=== PATIENT | male | born 1940 | race Caucasian/White ===

== ENCOUNTER 2017-09-05 07:24 | Day surgery (SDC) | payer MEDICARE, BC ==
[2017-09-05] MEDS ORDERED: Sodium Chloride 0.9% 10 ML Syringe FLUSH PRN (07:30)
[2017-09-05] MEDS ORDERED: Lactated Ringers 1,000 ML IV SCH (07:30)
[2017-09-05] MEDS ORDERED: Propofol 200 MG/20 ML SDV IV ONE (09:00)
[2017-09-05] MEDS ORDERED: Midazolam 1 MG/ML 2 ML SDV IV ONE (09:00)
[2017-09-05] MEDS ORDERED: Lidocaine 2% 100 MG/5 ML Syringe IVPUSH ONE (09:00)
--- NOTE | 2017-09-05 09:23 | PCM.OPNOTE ---
- General Post-Op/Procedure Note Date of Surgery/Procedure: 09/05/17 Operative Procedure(s): egd with bx Findings: gastroduodenitis Pre Op Diagnosis: duodenitis Post-Op Diagnosis: gastroduodenitis Anesthesia Technique: MYRTLE Primary Surgeon: Soren Winn Anesthesia Provider: Gloria Garcia Pathology: stomach and duodenum Complications: None Condition: Good Free Text/Narrative:: see dictation
[2017-09-05 10:13] VITALS: BP 132/80
--- NOTE | 2017-09-05 11:43 | OR ---
DATE OF OPERATION: 09/05/2017 SURGEON: Soren Winn MD PROCEDURE PERFORMED: Upper endoscopy with cold forceps biopsy. PREOPERATIVE DIAGNOSIS: Duodenitis. POSTOPERATIVE DIAGNOSIS: Gastric duodenitis. INDICATIONS FOR PROCEDURE: This is a 76-year-old white male, who presented with a complaint of some right upper quadrant abdominal pain consistent with duodenitis. He was offered and accepted an EGD. DESCRIPTION OF PROCEDURE: After an excellent IV sedation was administered, the bite-block was inserted and flexible endoscope was passed without difficulty down the patient's esophagus into the stomach. The stomach was insufflated. Scope was passed through the pylorus to the second portion of duodenum and slowly withdrawn. The following findings were noted. #1. Mild duodenitis in the first portion of the duodenum. Biopsies were taken. #2. Gastritis, especially in the area of the antrum. Antral biopsies were taken. The esophagus was unremarkable. Stomach was deflated. The scope was removed. The patient tolerated the procedure well, and was taken to recovery room in good condition. /[id number] /MODL
== END 2017-09-05 10:24 | disposition home or self-care (01) ==
LOC: FB.SDS 07:24
PROVIDERS: ATTEND Surgery
DX: K29.50 Unspecified chronic gastritis without bleeding (principal); K29.80 Duodenitis without bleeding; E03.9 Hypothyroidism, unspecified; N40.1 Benign prostatic hyperplasia with lower urinary tract symptoms; K21.9 Gastro-esophageal reflux disease without esophagitis; Z88.1 Allergy status to other antibiotic agents; Z88.8 Allergy status to other drugs, medicaments and biological substances; Z79.82 Long term (current) use of aspirin; Z79.899 Other long term (current) drug therapy; Z87.891 Personal history of nicotine dependence
CPT/HCPCS: 00740; 43239; 88305; 88342; J2250; J2704; J7120

== ENCOUNTER 2020-07-27 07:07 | Day surgery (SDC) | payer MEDICARE, BC ==
[2020-07-27] MEDS ORDERED: Propofol 200 MG/20 ML SDV IV ONE (07:08)
[2020-07-27] MEDS ORDERED: Sodium Chloride 0.9% 10 ML Syringe FLUSH PRN (07:15)
[2020-07-27] MEDS: Lactated Ringers 1,000 ML IV SCH (08:18)
--- NOTE | 2020-07-27 09:17 | PCM.OPNOTE ---
- General Post-Op/Procedure Note Date of Surgery/Procedure: 07/27/20 Operative Procedure(s): c scope with hot loop and cold forceps biopsy Findings: large cecal polyp. unable to remove with hot loop. tissue obtained. rectal polyp Pre Op Diagnosis: rectal bleeding Post-Op Diagnosis: ascending colon polyp. rectal polyp Anesthesia Technique: MAC Primary Surgeon: Soren Winn Anesthesia Provider: Gloria Garcia Pathology: ascending colon polyp rectal polyp Complications: None Condition: Good Free Text/Narrative:: see dictation [id number]
[2020-07-27 09:52] VITALS: BP 126/68; PULSE 69
--- NOTE | 2020-07-27 14:37 | PROC ---
DATE OF PROCEDURE: 07/27/2020 PROCEDURE PERFORMED: Colonoscopy with hot loop and cold forceps biopsy. PREOPERATIVE DIAGNOSIS: Rectal bleeding. POSTOPERATIVE DIAGNOSES: 1. Ascending colon polyp. 2. Rectal polyp. INDICATIONS FOR PROCEDURE: This 79-year-old white male, who is referred with the above-mentioned complaints, offered and accepted colonoscopy. DESCRIPTION OF PROCEDURE: After an excellent IV sedation was administered, digital rectal exam was performed. No marked abnormality was noted. The flexible colonoscope was inserted and advanced to the cecum. The prep was excellent. The following findings were noted: At the ascending colon, there was a large pedunculated-appearing polyp. Maximal diameter appeared to be roughly about 3 to 3.5 cm. We were able to get a hot loop around the base; however, attempts with short pulses of the electrocautery did not allow us to cut across the base of the polyp. The cord and loop were replaced, and again, this was unsuccessful. Rather than risk perforation, a shave biopsy was taken off the top using the hot loop which did cut very nicely. This was retrieved and sent for permanent. The remainder of the ascending colon was unremarkable. The transverse colon was unremarkable. The descending colon was unremarkable. The sigmoid was unremarkable. At the rectum, small polypoid lesion 0.5 cm in size, biopsied with cold biopsy forceps and sent for permanent that was completely obliterated. Retroflexing the scope, there was no evidence of internal hemorrhoids, and there was no overt evidence of an obvious cause for rectal bleeding. The patient tolerated the procedure well. We will be contacting him with the results. /[id number] /NATHENL
== END 2020-07-27 10:13 | disposition home or self-care (01) ==
LOC: FB.SDS 07:07
PROVIDERS: ATTEND Surgery
DX: D12.8 Benign neoplasm of rectum (principal); K52.832 Lymphocytic colitis; E03.9 Hypothyroidism, unspecified; Z79.899 Other long term (current) drug therapy; Z88.8 Allergy status to other drugs, medicaments and biological substances; Z88.1 Allergy status to other antibiotic agents; Z79.890 Hormone replacement therapy; Z98.890 Other specified postprocedural states; Z87.891 Personal history of nicotine dependence
CPT/HCPCS: 00811; 45380; 45384; 88305; 88341; 88342; J2704; J7120

== ENCOUNTER 2021-09-05 14:25 | Emergency (ER) | payer MEDICARE, BC ==
[2021-09-05] MEDS ORDERED: Acetaminophen/HYDROcodone 325-5 MG Tab PO STA (14:50)
[2021-09-05] MEDS ORDERED: Ketorolac 30 MG/ML SDV IM STA (14:50)
--- NOTE | 2021-09-05 16:31 | EDM.PDOC ---
ED HPI GENERAL MEDICAL PROBLEM - General Chief Complaint: Back Pain or Injury Stated Complaint: BACK PAIN FROM FALL Time Seen by Provider: 09/05/21 14:45 Source of Information: Reports: Patient History Limitations: Reports: No Limitations - History of Present Illness INITIAL COMMENTS - FREE TEXT/NARRATIVE: Patient presented to the ED because of severe low back pain after falling backwards 2 steps from his stairs. He landed on his buttock but the pain is on his L1-L2 area. Lower Back Pain Score (Numeric/FACES): 10 - Related Data Allergies Allergy/AdvReac Type Severity Reaction Status Date / Time ciprofloxacin [From Cipro] Allergy Rash Verified 03/21/21 09:35 Sulfa (Sulfonamide Allergy Rash Verified 09/05/21 14:41 Antibiotics) cyclobenzaprine AdvReac Other Verified 03/21/21 09:35 [Cyclobenzaprine] tetracycline [Tetracycline] AdvReac Other Verified 03/21/21 09:35 Home Meds: Home Meds Aspirin [[place] Aspirin] 81 mg PO DAILY 12/16/13 [History] Garlic 1,000 mg PO DAILY 12/16/13 [History] Levothyroxine 88 mcg PO DAILY 12/16/13 [History] Loratadine [Claritin] 10 mg PO DAILY PRN 12/16/13 [History] Psyllium Husk/Aspartame [Metamucil Sugar Free Powder] 1 tbsp PO DAILY PRN 12/16/13 [History] Omeprazole [Prilosec] 20 mg PO DAILY 12/17/13 [History] EPINEPHrine [Epipen] 0.3 mg IM ASDIRECTED PRN 07/26/20 [History] Sildenafil [Viagra] 100 mg PO DAILY PRN 07/26/20 [History] Triamcinolone Acetonide [Triamcinolone Acetonide 0.1% Crm] 1 applic TOP TID PRN 07/26/20 [History] Acetaminophen/oxyCODONE [Percocet 325-5 MG] 1 each PO Q4H PRN #20 tab 09/05/21 [Rx] Calcium Carb/D3/Magnesium/Zinc [Shyam Mag Zinc + D3] 1 tab PO DAILY 09/05/21 [History] Cyanocobalamin (Vitamin B12) [Vitamin B-12] 2,500 mcg SL DAILY 09/05/21 [History] Cyclobenzaprine [Flexeril] 5 mg PO Q8H PRN #30 tab 09/05/21 [Rx] Furosemide [Lasix] 20 mg PO DAILY 09/05/21 [History] Naproxen 500 mg PO BID PRN #30 tablet 09/05/21 [Rx] Past Medical History HEENT History: Reports: Cataract, Hard of Hearing, Impaired Vision Cardiovascular History: Reports: None Respiratory History: Reports: None Gastrointestinal History: Reports: GERD Genitourinary History: Reports: BPH, Renal Calculus Other Genitourinary History: POLYURIA. DIVERTICULUM OF BLADDER. BLADDER CALCULUS [employer] History: Reports: None Musculoskeletal History: Reports: Fracture, Neck Pain, Chronic, Other (See Below) Other Musculoskeletal History: LUMBOSACRAL SPONDYLOSIS. ACUTE NECK SPRAIN. RIGHT KNEE BURSITIS Neurological History: Reports: None Psychiatric History: Reports: None Endocrine/Metabolic History: Reports: Hypothyroidism Hematologic History: Reports: Anemia, Other (See Below) Other Hematologic History: THROMBOCYTOPENIA Immunologic History: Reports: None Oncologic (Cancer) History: Reports: Lymphoma, Other (See Below) Other Oncologic History: SMALL LYMPHOCYTIC LYMPHOMA Dermatologic History: Reports: None - Past Surgical History Head Surgeries/Procedures: Reports: None HEENT Surgical History: Reports: Oral Surgery Cardiovascular Surgical History: Reports: None Respiratory Surgical History: Reports: None GI Surgical History: Reports: Appendectomy, Colonoscopy, EGD Male Surgical History: Reports: Other (See Below) Other Male Surgeries/Procedures: LASER VAPORIZATION OF PROSTATE Endocrine Surgical History: Reports: None Neurological Surgical History: Reports: None Musculoskeletal Surgical History: Reports: Other (See Below) Other Musculoskeletal Surgeries/Procedures:: I&D RIGHT KNEE Oncologic Surgical History: Reports: None Dermatological Surgical History: Reports: None Social & Family History - Tobacco Use Tobacco Use Status *Q: Never Tobacco User - Caffeine Use Caffeine Use: Reports: None - Recreational Drug Use Recreational Drug Use: No ED ROS GENERAL - Review of Systems Review Of Systems: See Below Constitutional: Reports: No Symptoms HEENT: Reports: No Symptoms Respiratory: Reports: No Symptoms Cardiovascular: Reports: No Symptoms Endocrine: Reports: No Symptoms GI/Abdominal: Reports: No Symptoms : Reports: No Symptoms Musculoskeletal: Reports: Back Pain Skin: Reports: No Symptoms Neurological: Reports: No Symptoms Psychiatric: Reports: No Symptoms ED EXAM,LOWER BACK PAIN/INJURY - Physical Exam Exam: See Below Exam Limited By: No Limitations General Appearance: Alert, No Apparent Distress Ears: Normal External Exam, Normal Canal, Normal TMs Nose: Normal Inspection, No Blood Throat/Mouth: Normal Inspection, Normal Lips, Normal Teeth Head: Atraumatic, Normocephalic Neck: Normal Inspection, Supple, Non-Tender, Full Range of Motion Respiratory/Chest: No Respiratory Distress, Lungs Clear, Normal Breath Sounds, No Accessory Muscle Use, Chest Non-Tender Cardiovascular: Normal Peripheral Pulses, Regular Rate, Rhythm, No Edema, No Gallop, No JVD, No Murmur GI/Abdominal: Normal Bowel Sounds, Soft, Non-Tender, No Organomegaly, No Distention, No Abnormal Bruit Back Exam: Muscle Spasm, Vertebral Tenderness Extremities: Normal Inspection, Normal Range of Motion, No Pedal Edema Neurological: Alert, Normal Mood/Affect, Normal Dorsiflexion, CN II-XII Intact, Normal Plantar Flexion, Normal Gait, Oriented x 3 Psychiatric: Normal Affect Course - Vital Signs Text/Narrative:: Xray lumbar spine-see result Toradol 30 mg IM x1 [place] 5 mg PO x1 Prcocet 5 mg PO x1 Last Recorded V/S: Last Vital Signs Temp 36.4 C 09/05/21 17:09 Pulse 69 09/05/21 17:09 Resp 18 09/05/21 17:09 BP 175/89 H 09/05/21 17:09 Pulse Ox 97 09/05/21 17:09 - Orders/Labs/Meds Orders: Active Orders 24 hr Category Date Time Status Insert Urinary Catheter [OM.PC] Q24H Care 09/05/21 16:45 Ordered Meds: Medications Discontinued Medications Generic Name Dose Route Start Last Admin Trade Name Wyattq PRN Reason Stop Dose Admin Hydrocodone Bitart/Acetaminophen 1 tab 09/05/21 14:50 09/05/21 14:55 Acetaminophen/Hydrocodone 325-5 Mg Tab PO 09/05/21 14:51 1 tab NOW STA Administration Ketorolac Tromethamine 30 mg 09/05/21 14:50 09/05/21 14:55 Ketorolac 30 Mg/Ml Sdv IM 09/05/21 14:51 30 mg NOW STA Administration Oxycodone/Acetaminophen 1 tab 09/05/21 16:32 09/05/21 16:37 Acetaminophen/Oxycodone 325-5 Mg Tab PO 09/05/21 16:33 1 tab NOW STA Administration Departure - Departure Time of Disposition: 17:00 Disposition: Home, Self-Care 01 Condition: Good Clinical Impression: Compression fracture, Low back pain - Discharge Information Prescriptions: Cyclobenzaprine [Flexeril] 5 mg PO Q8H PRN #30 tab PRN Reason: Spasms Naproxen 500 mg PO BID PRN #30 tablet PRN Reason: Pain Acetaminophen/oxyCODONE [Percocet 325-5 MG] 1 each PO Q4H PRN #20 tab PRN Reason: Pain Instructions: Lumbar Spine Fracture Referrals: Kvng Vieyra DO [Primary Care Provider] - Forms: ED Department Discharge Additional Instructions: Please read discharge instructions on lumbar compression compression fracture Naproxen 500 mg twice daily as needed for pain Percocet 5mg, 1-2 tablets every 4-6 hours as needed for pain Flexeril 5 mg every 8 hours as needed for muscle spasm Follow up with your doctor in 3-5 days Sepsis Event Note (ED) - Evaluation Sepsis Screening Result: No Definite Risk - My Orders Last 24 Hours: My Active Orders 09/05/21 16:45 Insert Urinary Catheter [OM.PC] Q24H - Assessment/Plan Last 24 Hours: My Active Orders 09/05/21 16:45 Insert Urinary Catheter [OM.PC] Q24H
[2021-09-05] MEDS ORDERED: Acetaminophen/oxyCODONE 325-5 MG Tab PO STA (16:32)
--- NOTE | 2021-09-05 17:57 | CR ---
INDICATION: Fall, low back pain. LUMBOSACRAL SPINE: Frontal and lateral views of the lumbosacral spine were obtained with three images, 09/05/21, and compared with CT scan dated 03/21/21. There are again noted compression fractures at L2, L3, L4 superior endplates with anterior compression of mild degree at L2. There is also severe loss of disc space at L4-5, all stable, compared with the previous study. However, there is a change at L1 with a new finding of superior endplate compression of mild degree. This could represent an acute finding, but is not showing specific signs of an acute injury at this time. If acute injury is suspected clinically and further evaluation is necessary, nuclear bone imaging or possibly MRI, may be helpful for further evaluation. Sclerosis is noted at posterior elements, most prominent at L5-S1. Sacroiliac joints appear to be intact. 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 One compression fracture of superior endplate of mild degree at L1 is new compared with the previous CT scan of 03/21/21. Report was called to Dr. Camacho at 1550 hours. [facility]
[2021-09-05 19:34] VITALS: BP 175/89; PULSE 69
== END 2021-09-05 17:40 | disposition home or self-care (01) ==
LOC: SUPCPDRO 14:25 → FB.ED 14:25
DX: S32.010A Wedge compression fracture of first lumbar vertebra, initial encounter for closed fracture (principal); K21.9 Gastro-esophageal reflux disease without esophagitis; E03.9 Hypothyroidism, unspecified; Z88.1 Allergy status to other antibiotic agents; Z88.2 Allergy status to sulfonamides; Z88.8 Allergy status to other drugs, medicaments and biological substances; Z79.82 Long term (current) use of aspirin; Z79.899 Other long term (current) drug therapy; W10.8XXA Fall (on) (from) other stairs and steps, initial encounter
CPT/HCPCS: 51702; 72100; 96372; 99283; A9270; J1885; 99285

== ENCOUNTER 2021-09-08 12:21 | Emergency (ER) | payer MEDICARE, BC ==
[2021-09-08] MEDS ORDERED: Cephalexin 500 MG Cap PO STA (15:54)
--- NOTE | 2021-09-08 16:09 | EDM.PDOC ---
ED HPI GENERAL MEDICAL PROBLEM - General Chief Complaint: Genitourinary Problem Stated Complaint: BACK PAIN Time Seen by Provider: 09/08/21 12:30 Source of Information: Reports: Patient History Limitations: Reports: No Limitations - History of Present Illness INITIAL COMMENTS - FREE TEXT/NARRATIVE: Patient presented to the ED because of back pain and cloud problem. He was diagn osed with vertebral compression fracture 1 week ago and was put on foly because he can't get up and go the restroom. Today he noticed that his catheter was no draining. His back pain is better with percocet. left Lower abdomen Pain Score (Numeric/FACES): 4 - Related Data Allergies Allergy/AdvReac Type Severity Reaction Status Date / Time ciprofloxacin [From Cipro] Allergy Rash Verified 03/21/21 09:35 Sulfa (Sulfonamide Allergy Rash Verified 09/08/21 13:37 Antibiotics) cyclobenzaprine AdvReac Other Verified 03/21/21 09:35 [Cyclobenzaprine] tetracycline [Tetracycline] AdvReac Other Verified 09/08/21 13:37 Home Meds: Home Meds Aspirin [[place] Aspirin] 81 mg PO DAILY 12/16/13 [History] Garlic 1,000 mg PO DAILY 12/16/13 [History] Levothyroxine 88 mcg PO DAILY 12/16/13 [History] Loratadine [Claritin] 10 mg PO DAILY PRN 12/16/13 [History] Psyllium Husk/Aspartame [Metamucil Sugar Free Powder] 1 tbsp PO DAILY PRN 12/16/13 [History] Omeprazole [Prilosec] 20 mg PO DAILY 12/17/13 [History] EPINEPHrine [Epipen] 0.3 mg IM ASDIRECTED PRN 07/26/20 [History] Sildenafil [Viagra] 100 mg PO DAILY PRN 07/26/20 [History] Triamcinolone Acetonide [Triamcinolone Acetonide 0.1% Crm] 1 applic TOP TID PRN 07/26/20 [History] Acetaminophen/oxyCODONE [Percocet 325-5 MG] 1 each PO Q4H PRN #20 tab 09/05/21 [Rx] Calcium Carb/D3/Magnesium/Zinc [Shyam Mag Zinc + D3] 1 tab PO DAILY 09/05/21 [History] Cyanocobalamin (Vitamin B12) [Vitamin B-12] 2,500 mcg SL DAILY 09/05/21 [History] Cyclobenzaprine [Flexeril] 5 mg PO Q8H PRN #30 tab 09/05/21 [Rx] Furosemide [Lasix] 20 mg PO DAILY 09/05/21 [History] Naproxen 500 mg PO BID PRN #30 tablet 09/05/21 [Rx] Acetaminophen/oxyCODONE [Percocet 325-5 MG] 1 each PO Q4H PRN #20 tab 09/08/21 [Rx] cephALEXin [Keflex] 500 mg PO Q8H #30 cap 09/08/21 [Rx] Past Medical History HEENT History: Reports: Cataract, Hard of Hearing, Impaired Vision Cardiovascular History: Reports: None Respiratory History: Reports: None Gastrointestinal History: Reports: GERD Genitourinary History: Reports: BPH, Renal Calculus Other Genitourinary History: POLYURIA. DIVERTICULUM OF BLADDER. 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 ACUTE NECK SPRAIN. RIGHT KNEE BURSITIS Neurological History: Reports: None Psychiatric History: Reports: None Endocrine/Metabolic History: Reports: Hypothyroidism Hematologic History: Reports: Anemia, Other (See Below) Other Hematologic History: THROMBOCYTOPENIA Immunologic History: Reports: None Oncologic (Cancer) History: Reports: Lymphoma, Other (See Below) Other Oncologic History: SMALL LYMPHOCYTIC LYMPHOMA Dermatologic History: Reports: None - Past Surgical History Head Surgeries/Procedures: Reports: None HEENT Surgical History: Reports: Oral Surgery Cardiovascular Surgical History: Reports: None Respiratory Surgical History: Reports: None GI Surgical History: Reports: Appendectomy, Colonoscopy, EGD Male Surgical History: Reports: Other (See Below) Other Male Surgeries/Procedures: LASER VAPORIZATION OF PROSTATE Endocrine Surgical History: Reports: None Neurological Surgical History: Reports: None Musculoskeletal Surgical History: Reports: Other (See Below) Other Musculoskeletal Surgeries/Procedures:: I&D RIGHT KNEE Oncologic Surgical History: Reports: None Dermatological Surgical History: Reports: None Social & Family History - Caffeine Use Caffeine Use: Reports: None ED ROS GENERAL - Review of Systems Review Of Systems: See Below Constitutional: Reports: No Symptoms HEENT: Reports: No Symptoms Respiratory: Reports: No Symptoms Cardiovascular: Reports: No Symptoms Endocrine: Reports: No Symptoms GI/Abdominal: Reports: No Symptoms : Reports: No Symptoms Musculoskeletal: Reports: Back Pain Skin: Reports: No Symptoms Neurological: Reports: No Symptoms ED EXAM, GENERAL - Physical Exam Exam: See Below Exam Limited By: No Limitations General Appearance: Alert, No Apparent Distress Ears: Normal External Exam, Normal Canal, Hearing Grossly Normal Nose: Normal Inspection, Normal Mucosa, No Blood Throat/Mouth: Normal Inspection, Normal Lips, Normal Teeth, Normal Gums, Normal Oropharynx, Normal Voice Head: Atraumatic Neck: Normal Inspection Respiratory/Chest: No Respiratory Distress Cardiovascular: Normal Peripheral Pulses, Regular Rate, Rhythm, No Edema GI/Abdominal: Normal Bowel Sounds, Soft, Non-Tender, No Organomegaly Back Exam: Normal Inspection, Full Range of Motion Extremities: Normal Inspection, Normal Range of Motion, Non-Tender, No Pedal Edema, Normal Capillary Refill Neurological: Alert, Oriented, CN II-XII Intact, Normal Cognition, Normal Reflexes, No Motor/Sensory Deficits Psychiatric: Normal Affect, Normal Mood Skin Exam: Warm, Intact Course - Vital Signs Text/Narrative:: Bladder scan-60 ml UA-UTI UC-pending Keflex 500 mg PO x1 Percocet 5 mg PO x1 Last Recorded V/S: Last Vital Signs Temp 36.4 C 09/08/21 16:35 Pulse 70 09/08/21 16:35 Resp 18 09/08/21 16:35 BP 136/76 09/08/21 16:35 Pulse Ox 93 L 09/08/21 16:35 - Orders/Labs/Meds Labs: Laboratory Tests 09/08/21 Range/Units 13:49 Urine Color Yellow (YELLOW) Urine Appearance Clear (CLEAR) Urine pH 5.0 (5.0-6.5) Ur Specific [place] 1.010 (1.010-1.025) Urine Protein Negative (NEGATIVE) mg/dL Urine Glucose (UA) Normal (NORMAL) mg/dL Urine Ketones Negative (NEGATIVE) mg/dL Urine Occult Blood Large H (NEGATIVE) Urine Nitrite Negative (NEGATIVE) Urine Bilirubin Negative (NEGATIVE) Urine Urobilinogen Normal (NEGATIVE) mg/dL Ur Leukocyte Esterase Moderate H (NEGATIVE) Urine RBC 5-10 H (0-5) Urine WBC 5-10 H (0-5) Ur Squamous Epith Cells Few H (NS,R,O) Urine Bacteria Few H (NS) Meds: Medications Discontinued Medications Generic Name Dose Route Start Last Admin Trade Name Freq PRN Reason Stop Dose Admin Cephalexin 500 mg 09/08/21 15:54 09/08/21 16:04 Cephalexin 500 Mg Cap PO 09/08/21 15:55 500 mg NOW STA Administration Oxycodone/Acetaminophen 1 tab 09/08/21 16:12 09/08/21 16:16 Acetaminophen/Oxycodone 325-5 Mg Tab PO 1 tab Q4H PRN Administration Pain Departure - Departure Time of Disposition: 16:00 Disposition: Home, Self-Care 01 Condition: Good Clinical Impression: Vertebral compression fracture, UTI (urinary tract infection) - Discharge Information Prescriptions: cephALEXin [Keflex] 500 mg PO Q8H #30 cap Acetaminophen/oxyCODONE [Percocet 325-5 MG] 1 each PO Q4H PRN #20 tab PRN Reason: Pain Instructions: Urinary Tract Infection, Adult, [id number], Lumbar Spine Fracture Referrals: Kvng Vieyra, [Primary Care Provider] - Forms: ED Department Discharge Additional Instructions: Please read discharge instructions on UTI If you feel like you can stand up and go to the rest room you can remove the cloud because it's causing you to have bladder infection Keflex 500 mg 3 times daily for 7 days Take your lasix/furosemide as instructed Follow up with your doctor this week Sepsis Event Note (ED) - Evaluation Sepsis Screening Result: No Definite Risk
[2021-09-08] MEDS ORDERED: Acetaminophen/oxyCODONE 325-5 MG Tab PO PRN (16:12)
[2021-09-08 19:18] VITALS: BP 136/76; PULSE 70
== END 2021-09-08 16:35 | disposition home or self-care (01) ==
LOC: FB.ED 12:21
DX: S32.000A Wedge compression fracture of unspecified lumbar vertebra, initial encounter for closed fracture (principal); N39.0 Urinary tract infection, site not specified; K21.9 Gastro-esophageal reflux disease without esophagitis; E03.9 Hypothyroidism, unspecified; N40.0 Benign prostatic hyperplasia without lower urinary tract symptoms; Z88.1 Allergy status to other antibiotic agents; Z88.2 Allergy status to sulfonamides; Z88.8 Allergy status to other drugs, medicaments and biological substances; Z79.82 Long term (current) use of aspirin; Z79.899 Other long term (current) drug therapy
CPT/HCPCS: 51702; 81001; 87086; 99284; 99284-25; A9270-GY

== ENCOUNTER 2021-09-18 19:34 | Emergency (ER) | payer MEDICARE, BC ==
--- NOTE | 2021-09-18 20:26 | EDM.PDOC ---
ED HPI GENERAL MEDICAL PROBLEM - General Stated Complaint: abd pain/trouble urinating Time Seen by Provider: 09/18/21 19:50 Source of Information: Reports: Patient - History of Present Illness INITIAL COMMENTS - FREE TEXT/NARRATIVE: 80-year-old gentleman came to the emergency department because he has severe abdominal pain and has having a very difficult time urinating. He has had difficulty with urination in the past and has been evaluated by urology in the past. However, he suffered a fall several weeks ago with severe lower back pain and has had increased difficulty since that time. While he was treated as an inpatient they left an indwelling urinary catheter and that was removed by his primary care physician last week. Since that time he has continued to have difficulty with voiding. He got to the point today where his abdominal pain was so bad he came to the emergency department. He denies fever, chills, flulike symptoms, chest pain, shortness of breath. lower abd Pain Score (Numeric/FACES): 7 - Related Data Allergies Allergy/AdvReac Type Severity Reaction Status Date / Time ciprofloxacin [From Cipro] Allergy Rash Verified 03/21/21 09:35 Sulfa (Sulfonamide Allergy Rash Verified 09/08/21 13:37 Antibiotics) cyclobenzaprine AdvReac Other Verified 03/21/21 09:35 [Cyclobenzaprine] tetracycline [Tetracycline] AdvReac Other Verified 09/08/21 13:37 Home Meds: Home Meds Aspirin [Emmet Aspirin] 81 mg PO DAILY 12/16/13 [History] Garlic 1,000 mg PO DAILY 12/16/13 [History] Levothyroxine 88 mcg PO DAILY 12/16/13 [History] Loratadine [Claritin] 10 mg PO DAILY PRN 12/16/13 [History] Psyllium Husk/Aspartame [Metamucil Sugar Free Powder] 1 tbsp PO DAILY PRN 12/16/13 [History] Omeprazole [Prilosec] 20 mg PO DAILY 12/17/13 [History] EPINEPHrine [Epipen] 0.3 mg IM ASDIRECTED PRN 07/26/20 [History] Sildenafil [Viagra] 100 mg PO DAILY PRN 07/26/20 [History] Triamcinolone Acetonide [Triamcinolone Acetonide 0.1% Crm] 1 applic TOP TID PRN 07/26/20 [History] Acetaminophen/oxyCODONE [Percocet 325-5 MG] 1 each PO Q4H PRN #20 tab 09/05/21 [Rx] Calcium Carb/D3/Magnesium/Zinc [Shyam Mag Zinc + D3] 1 tab PO DAILY 09/05/21 [History] Cyanocobalamin (Vitamin B12) [Vitamin B-12] 2,500 mcg SL DAILY 09/05/21 [History] Cyclobenzaprine [Flexeril] 5 mg PO Q8H PRN #30 tab 09/05/21 [Rx] Furosemide [Lasix] 20 mg PO DAILY 09/05/21 [History] Naproxen 500 mg PO BID PRN #30 tablet 09/05/21 [Rx] Acetaminophen/oxyCODONE [Percocet 325-5 MG] 1 each PO Q4H PRN #20 tab 09/08/21 [Rx] cephALEXin [Keflex] 500 mg PO Q8H #30 cap 09/08/21 [Rx] Past Medical History HEENT History: Reports: Cataract, Hard of Hearing, Impaired Vision Cardiovascular History: Reports: None Respiratory History: Reports: None Gastrointestinal History: Reports: GERD Genitourinary History: Reports: BPH, Renal Calculus Other Genitourinary History: POLYURIA. DIVERTICULUM OF BLADDER. 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 ACUTE NECK SPRAIN. RIGHT KNEE BURSITIS Neurological History: Reports: None Psychiatric History: Reports: None Endocrine/Metabolic History: Reports: Hypothyroidism Hematologic History: Reports: Anemia, Other (See Below) Other Hematologic History: THROMBOCYTOPENIA Immunologic History: Reports: None Oncologic (Cancer) History: Reports: Lymphoma, Other (See Below) Other Oncologic History: SMALL LYMPHOCYTIC LYMPHOMA Dermatologic History: Reports: None - Infectious Disease History Infectious Disease History: Reports: None - Past Surgical History Head Surgeries/Procedures: Reports: None HEENT Surgical History: Reports: Oral Surgery Cardiovascular Surgical History: Reports: None Respiratory Surgical History: Reports: None GI Surgical History: Reports: Appendectomy, Colonoscopy, EGD Male Surgical History: Reports: Other (See Below) Other Male Surgeries/Procedures: LASER VAPORIZATION OF PROSTATE Endocrine Surgical History: Reports: None Neurological Surgical History: Reports: None Musculoskeletal Surgical History: Reports: Other (See Below) Other Musculoskeletal Surgeries/Procedures:: I&D RIGHT KNEE Oncologic Surgical History: Reports: None Dermatological Surgical History: Reports: None Social & Family History - Family History Family Medical History: No Pertinent Family History - Caffeine Use Caffeine Use: Reports: None ED ROS GENERAL - Review of Systems Review Of Systems: See Below Constitutional: Reports: No Symptoms HEENT: Reports: No Symptoms Respiratory: Reports: No Symptoms Cardiovascular: Reports: No Symptoms Endocrine: Reports: No Symptoms GI/Abdominal: Reports: Abdominal Pain : Reports: Urinary Retention Musculoskeletal: Reports: Back Pain Skin: Reports: No Symptoms Neurological: Reports: No Symptoms Psychiatric: Reports: No Symptoms Hematologic/Lymphatic: Reports: No Symptoms Immunologic: Reports: No Symptoms ED EXAM, RENAL/ - Physical Exam Exam: See Below Exam Limited By: No Limitations General Appearance: Alert, Mild Distress Eye Exam: Bilateral Eye: EOMI Head: Atraumatic, Normocephalic Neck: Normal Inspection Respiratory/Chest: Crackles Cardiovascular: Regular Rate, Rhythm GI/Abdominal: Normal Bowel Sounds, Tender Back Exam: Normal Inspection Extremities: Pedal Edema Neurological: Alert, Oriented, CN II-XII Intact, Normal Cognition Psychiatric: Normal Affect, Normal Mood Skin Exam: Warm, Dry Course - Vital Signs Text/Narrative:: Ultrasound showed greater than 600 mL in the bladder. Urinary catheter was placed and patient had immediate relief of pain and pressure. Last Recorded V/S: Last Vital Signs Temp 36.4 C 09/18/21 19:34 Pulse 84 09/18/21 19:34 Resp 17 09/18/21 19:34 BP 168/94 H 09/18/21 19:34 Pulse Ox 99 09/18/21 19:34 Departure - Departure Time of Disposition: 20:24 Disposition: Home, Self-Care 01 Condition: Fair Clinical Impression: Urinary retention, BPH with urinary obstruction, Back pain due to injury - Discharge Information *PRESCRIPTION DRUG MONITORING PROGRAM REVIEWED*: Not Applicable *COPY OF PRESCRIPTION DRUG MONITORING REPORT IN PATIENT MICHAEL: Not Applicable Instructions: Indwelling Urinary Catheter Care, Adult Referrals: Kvng Vieyra DO [Primary Care Provider] - Additional Instructions: After discussion with the patient we decided to leave the urinary catheter in place. Patient will be referred to urology. Patient has had evaluation and treatment by urology in the past and will likely only get resolution of the symptoms with urological treatment. Patient advised to follow-up and ensure that his primary care physician makes the referral to urology. Sepsis Event Note (ED) - Evaluation Sepsis Screening Result: No Definite Risk - Focused Exam Vital Signs: Vital Signs Temp Pulse Resp BP Pulse Ox 09/18/21 19:34 36.4 C 84 17 168/94 H 99
[2021-09-18 23:20] VITALS: BP 133/72; PULSE 73
== END 2021-09-18 20:40 | disposition home or self-care (01) ==
LOC: FB.ED 19:34
DX: N40.1 Benign prostatic hyperplasia with lower urinary tract symptoms (principal); N13.8 Other obstructive and reflux uropathy; R33.8 Other retention of urine; G89.11 Acute pain due to trauma; M54.9 Dorsalgia, unspecified; K21.9 Gastro-esophageal reflux disease without esophagitis; E03.9 Hypothyroidism, unspecified; Z88.1 Allergy status to other antibiotic agents; Z88.2 Allergy status to sulfonamides; Z88.8 Allergy status to other drugs, medicaments and biological substances; Z79.82 Long term (current) use of aspirin; Z79.899 Other long term (current) drug therapy
CPT/HCPCS: 51702; 99283; 99284-25

== ENCOUNTER 2021-10-14 01:34 | Emergency (ER) | payer MEDICARE, BC ==
[2021-10-14] MEDS ORDERED: Lidocaine 2% HCl 6 ML JEL.PF.APP ONE (02:09)
[2021-10-14 02:47] VITALS: BP 155/82; PULSE 98
[2021-10-14] MEDS ORDERED: Cefdinir 300 MG Cap PO ONE (04:37)
== END 2021-10-14 05:03 | disposition home or self-care (01) ==
LOC: FB.ED 01:34
DX: S32.020A Wedge compression fracture of second lumbar vertebra, initial encounter for closed fracture (principal); S32.031A Stable burst fracture of third lumbar vertebra, initial encounter for closed fracture; S32.051A Stable burst fracture of fifth lumbar vertebra, initial encounter for closed fracture; S32.011A Stable burst fracture of first lumbar vertebra, initial encounter for closed fracture; T83.511A Infection and inflammatory reaction due to indwelling urethral catheter, initial encounter; N39.0 Urinary tract infection, site not specified; R33.9 Retention of urine, unspecified; K21.9 Gastro-esophageal reflux disease without esophagitis; N40.0 Benign prostatic hyperplasia without lower urinary tract symptoms; E03.9 Hypothyroidism, unspecified; Z88.1 Allergy status to other antibiotic agents; Z88.2 Allergy status to sulfonamides; Z88.8 Allergy status to other drugs, medicaments and biological substances; Z79.82 Long term (current) use of aspirin; Z79.899 Other long term (current) drug therapy
CPT/HCPCS: 36415; 51702; 74176; 80048; 81001; 85025; 86140; 87086; 87088; 87186; 99284; A9270

== ENCOUNTER 2022-01-27 18:27 | Emergency (ER) | payer MEDICARE, BC ==
[2022-01-27 18:39] VITALS: BP 127/71; PULSE 76
== END 2022-01-27 19:29 | disposition home or self-care (01) ==
LOC: FB.ED 18:27
DX: N48.89 Other specified disorders of penis (principal); N40.0 Benign prostatic hyperplasia without lower urinary tract symptoms; K21.9 Gastro-esophageal reflux disease without esophagitis; E03.9 Hypothyroidism, unspecified; Z88.1 Allergy status to other antibiotic agents; Z88.2 Allergy status to sulfonamides; Z88.8 Allergy status to other drugs, medicaments and biological substances; Z79.82 Long term (current) use of aspirin; Z79.899 Other long term (current) drug therapy
CPT/HCPCS: 99281; 99283

== ENCOUNTER 2022-03-11 16:52 | Emergency (ER) | payer MEDICARE, BC ==
[2022-03-11 19:09] VITALS: BP 146/84; PULSE 86
== END 2022-03-11 18:05 | disposition home or self-care (01) ==
LOC: FB.ED 16:52
DX: R33.9 Retention of urine, unspecified (principal)
CPT/HCPCS: 51702; 99281; 99283-25

== ENCOUNTER 2022-04-03 02:52 | Emergency (ER) | payer MEDICARE, BC ==
[2022-04-03 03:48] VITALS: BP 142/78; PULSE 72
== END 2022-04-03 04:55 | disposition home or self-care (01) ==
LOC: FB.ED 02:52
DX: N13.9 Obstructive and reflux uropathy, unspecified (principal); K21.9 Gastro-esophageal reflux disease without esophagitis; E03.9 Hypothyroidism, unspecified; Z88.1 Allergy status to other antibiotic agents; Z88.2 Allergy status to sulfonamides; Z88.8 Allergy status to other drugs, medicaments and biological substances; Z79.82 Long term (current) use of aspirin; Z79.899 Other long term (current) drug therapy
CPT/HCPCS: 81001; 87086; 99282; 99283

== ENCOUNTER 2023-12-16 06:37 | Day surgery (SDC) | payer MEDICARE, BC ==
[2023-12-16] MEDS ORDERED: Sodium Chloride 0.9% 10 ML Syringe IV ONE (06:38)
[2023-12-16] MEDS ORDERED: Midazolam 1 MG/ML 2 ML SDV IV ONE (06:38)
[2023-12-16] MEDS ORDERED: fentaNYL 100 MCG/2 ML SDV IV ONE (06:38)
[2023-12-16] MEDS ORDERED: Lactated Ringers 1,000 ML IV SCH (06:45)
[2023-12-16] MEDS: Sodium Chloride 0.9% 10 ML Syringe FLUSH PRN (07:30)
[2023-12-16] MEDS: acetaZOLAMIDE 500 MG Cap.ER PO ONE (09:33)
[2023-12-16 12:21] VITALS: BP 138/82; PULSE 61
== END 2023-12-16 10:00 | disposition home or self-care (01) ==
LOC: FB.SDS 06:37 → MERGE 06:37 → FB.SDS 10:00
PROVIDERS: ATTEND Ophthalmology
DX: H25.9 Unspecified age-related cataract (principal); D69.6 Thrombocytopenia, unspecified; E03.9 Hypothyroidism, unspecified; I87.2 Venous insufficiency (chronic) (peripheral); Z87.891 Personal history of nicotine dependence; Z79.899 Other long term (current) drug therapy; Z90.49 Acquired absence of other specified parts of digestive tract; Z88.1 Allergy status to other antibiotic agents; Z88.5 Allergy status to narcotic agent; Z88.8 Allergy status to other drugs, medicaments and biological substances
CPT/HCPCS: 66984; A9270; J2250; J3010; J3490; V2632; 00142; 99100

== ENCOUNTER 2023-12-30 07:02 | Day surgery (SDC) | payer MEDICARE, BC ==
[~2023-12-30 07:02] MED LIST: Lactated Ringers 1,000 ML IV PRN
[2023-12-30] MEDS ORDERED: Midazolam 1 MG/ML 2 ML SDV IV ONE (07:03)
[2023-12-30] MEDS ORDERED: fentaNYL 100 MCG/2 ML SDV IV ONE (07:03)
[2023-12-30] MEDS: Sodium Chloride 0.9% 10 ML Syringe FLUSH PRN (07:56)
[2023-12-30] MEDS: acetaZOLAMIDE 500 MG Cap.ER PO ONE (08:54)
[2023-12-30 11:46] VITALS: BP 138/76; PULSE 55
== END 2023-12-30 09:28 | disposition home or self-care (01) ==
LOC: FB.SDS 07:02
PROVIDERS: ATTEND Ophthalmology
DX: H25.9 Unspecified age-related cataract (principal); M06.9 Rheumatoid arthritis, unspecified; K21.9 Gastro-esophageal reflux disease without esophagitis; E03.9 Hypothyroidism, unspecified; N40.1 Benign prostatic hyperplasia with lower urinary tract symptoms; Z87.891 Personal history of nicotine dependence; Z79.890 Hormone replacement therapy; Z79.899 Other long term (current) drug therapy
CPT/HCPCS: 00142; 99100; A9270-GY; J2250; J3010; J3490; V2632

== ENCOUNTER 2024-10-04 17:37 | Emergency (ER) | payer MEDICARE, BC ==
[2024-10-04 18:33] LABS: BASOPHILS PERCENT AUTO 0.6 % (0.3-3.8); EOSINOPHILS ABSOLUTE AUTO 0.2 x10-3/uL (0.0-0.6); EOSINOPHILS PERCENT AUTO 3.6 % (0.1-6.8); HEMATOCRIT 43.3 % (38.3-50.1); HEMOGLOBIN 14.6 g/dL (12.9-17.7); LYMPHOCYTES ABSOLUTE AUTO 2.1 x10-3/uL (0.5-4.5); LYMPHOCYTES PERCENT AUTO 31.5 % (15.8-45.3); MEAN CORPUSCULAR HEMOGLOBIN 32.5 pg (27.0-33.3); MEAN CORPUSCULAR HGB CONC 33.8 g/dL (28.7-35.3); MEAN CORPUSCULAR VOLUME 96.1 fL (80.8-98.7); MEAN PLATELET VOLUME 6.7 fL (6.7-11.0); MONOCYTES ABSOLUTE AUTO 0.5 x10-3/uL (0.0-1.2); MONOCYTES PERCENT AUTO 7.7 % (5.5-15.2); NEUTROPHILS ABSOLUTE AUTO 3.8 x10-3/uL (1.7-6.9); NEUTROPHILS PERCENT AUTO 56.6 % (40.3-71.8); PLATELET COUNT,PLT 220 x10(3)uL (117-477); RED CELL DISTRIBUTION WIDTH 13.8 % (12.4-15.0); WHITE BLOOD CELL COUNT,WBC 6.7 x10-3/uL (3.2-10.1)
[2024-10-04 18:36] LABS: BLOOD UREA NITROGEN,BUN 17 mg/dL (7-18); CALCIUM 8.9 mg/dL (8.6-10.2); CARBON DIOXIDE,CO2 32 mmol/L (21-32); CHLORIDE,CL 100 mmol/L (100-110); ESTIMATED GFR 75 mL/min (>60); GLUCOSE RANDOM 77 mg/dL (80-116); POTASSIUM,K 3.8 mmol/L (3.5-5.3); SODIUM,NA 139 mmol/L (135-145)
[2024-10-04 18:42] LABS: A/G RATIO 1.3; ALANINE AMINOTRANSFERASE,ALT 14 U/L (12-36); ALBUMIN 4.1 g/dL (3.2-4.6); ALKALINE PHOSPHATASE 80 IU/L (56-112); ASPARTATE AMNIOTRANSFERASE,AST 12 IU/L (5-25); BILIRUBIN TOTAL 1.3 mg/dL (0.1-1.3); PROTEIN TOTAL,TP 7.2 g/dL (6.0-8.0)
[2024-10-04 19:02] LABS: PROTHROMBIN TIME 10.4 sec (9.0-11.1)
[2024-10-04 19:04] LABS: PTT,PARTIAL THROMBOPLSTIN TIME 26.9 SECONDS (24.4-33.2)
[2024-10-04 19:52] LABS: BILIRUBIN,URINE NEGATIVE (NEGATIVE); GLUCOSE,URINE NORMAL (NORMAL); KETONES,URINE NEGATIVE (NEGATIVE); LEUKOCYTE ESTERASE,URINE NEGATIVE (NEGATIVE); NITRITE,URINE NEGATIVE (NEGATIVE); OCCULT BLOOD,URINE NEGATIVE (NEGATIVE); PROTEIN,URINE NEGATIVE (NEGATIVE); UROBILINOGEN,URINE NORMAL (NEGATIVE)
[2024-10-04 19:56] LABS: APPEARANCE,URINE CLEAR (CLEAR); COLOR,URINE YELLOW (YELLOW)
[2024-10-04] MEDS: Iopamidol 755 Mg/ML 100 ML Bottle IV SCH (20:15)
[2024-10-04] MEDS ORDERED: Acetaminophen 500 MG Tab PO ONE (20:40)
[2024-10-04] MEDS: Clopidogrel 75 MG Tab PO ONE (21:42)
[2024-10-04] MEDS: Aspirin 81 MG Tab.Chew PO ONE (21:42)
[2024-10-04 22:01] VITALS: BP 160/89; PULSE 66
== END 2024-10-04 22:00 | disposition home or self-care (01) ==
LOC: FB.ED 17:37
DX: R41.82 Altered mental status, unspecified (principal); K21.9 Gastro-esophageal reflux disease without esophagitis; E03.9 Hypothyroidism, unspecified; Z79.899 Other long term (current) drug therapy; Z79.890 Hormone replacement therapy; Z88.1 Allergy status to other antibiotic agents; Z88.8 Allergy status to other drugs, medicaments and biological substances; Z88.2 Allergy status to sulfonamides; Z88.5 Allergy status to narcotic agent
CPT/HCPCS: 36415; 70496; 70498; 71045; 80053; 81003; 84484; 85025; 85610; 85730; 93005; 99285; A9270-GY; Q9967

== ENCOUNTER 2024-11-16 08:14 | Emergency (ER) | payer MEDICARE, BC ==
[2024-11-16] MEDS ORDERED: Sodium Chloride 0.9% 10 ML Syringe FLUSH PRN (08:30)
[2024-11-16 08:42] LABS: BLOOD UREA NITROGEN,BUN 19 mg/dL (7-18); BUN/CREATININE RATIO 17.3 (9-20); CALCIUM 9.2 mg/dL (8.6-10.2); CARBON DIOXIDE,CO2 31 mmol/L (21-32); CHLORIDE,CL 98 mmol/L (100-110); CREATININE 1.1 mg/dL (0.70-1.30); ESTIMATED GFR 67 mL/min (>60); GLUCOSE RANDOM 151 mg/dL (80-116); HEMATOCRIT 44.4 % (38.3-50.1); HEMOGLOBIN 15.2 g/dL (12.9-17.7); MEAN CORPUSCULAR HEMOGLOBIN 32.7 pg (27.0-33.3); MEAN CORPUSCULAR HGB CONC 34.3 g/dL (28.7-35.3); MEAN CORPUSCULAR VOLUME 95.5 fL (80.8-98.7); MEAN PLATELET VOLUME 6.7 fL (6.7-11.0); PLATELET COUNT,PLT 226 x10(3)uL (117-477); POTASSIUM,K 4.6 mmol/L (3.5-5.3); RED BLOOD CELL COUNT 4.65 x10(6)uL (3.90-5.90); RED CELL DISTRIBUTION WIDTH 13.6 % (12.4-15.0); SODIUM,NA 137 mmol/L (135-145); WHITE BLOOD CELL COUNT,WBC 10.1 x10-3/uL (3.2-10.1)
[2024-11-16] MEDS ORDERED: Sodium Chloride 0.9% 1,000 ML IV SCH (08:45)
[2024-11-16 08:48] LABS: A/G RATIO 1.1; ALANINE AMINOTRANSFERASE,ALT 19 U/L (12-36); ALBUMIN 4.3 g/dL (3.2-4.6); ALKALINE PHOSPHATASE 81 IU/L (56-112); ASPARTATE AMNIOTRANSFERASE,AST 19 IU/L (5-25); BILIRUBIN TOTAL 0.9 mg/dL (0.1-1.3); MAGNESIUM 1.9 mg/dL (1.8-2.5); PROTEIN TOTAL,TP 8.4 g/dL (6.0-8.0)
[2024-11-16 08:49] LABS: INR 0.97 (1.00-1.24); PROTHROMBIN TIME 10.1 sec (9.0-11.1); PTT,PARTIAL THROMBOPLSTIN TIME 25.4 SECONDS (24.4-33.2)
[2024-11-16 08:52] LABS: LYMPHOCYTES PERCENT MAN 9 % (13-37); MONOCYTES PERCENT MAN 5 % (4-12); SEG NEUTROPHILS PERCENT MAN 86 % (46-82)
== END 2024-11-16 09:30 ==
LOC: FB.ED 08:14
DX: I62.9 Nontraumatic intracranial hemorrhage, unspecified (principal); E03.9 Hypothyroidism, unspecified; Z88.5 Allergy status to narcotic agent; Z88.2 Allergy status to sulfonamides; Z88.1 Allergy status to other antibiotic agents; Z88.8 Allergy status to other drugs, medicaments and biological substances; Z79.890 Hormone replacement therapy; Z79.899 Other long term (current) drug therapy; Z79.82 Long term (current) use of aspirin
CPT/HCPCS: 36415; 51702; 70450; 71045; 80053; 82947; 83735; 84484; 85025; 85610; 85730; 93010; 96360; 99285; 99291-25